=== PATIENT | female | born 1990 | race African-American/Black ===

== ENCOUNTER → 2022-09-27 11:09 | Outpatient (CLI) | payer OTHER, SELFPAY ==
--- NOTE | 2022-09-27 | DI.MRI.S_ITS ---
PROCEDURE: MR KNEE LT WO CON INDICATIONS: LEFT KNEE PAIN TECHNIQUE: Noncontrast sagittal PD fast spin echo and T2 fast spin echo with fat saturation, sagittal 3-D FLASH with fat saturation; coronal T1 spin echo and PD fast spin echo with fat saturation, and axial PD fast spin echo with fat saturation through the knee. COMPARISON: [facility], CR, XR KNEE ARTHRITIC SERIES BI, 08/16/2022, 13:04. FINDINGS: Image quality: Degraded by motion artifact. Menisci: Horizontal tearing versus artifact within the inner, middle, and peripheral thirds of the medial meniscal body and posterior horn. Artifact versus linear oblique high T2 signal intensity within the inner, middle, and peripheral thirds of the anterior horn lateral meniscus, demonstrating inferior articular surface extension. Cruciate ligaments: The anterior and posterior cruciate ligaments appear intact. Medial structures: The medial collateral ligament appears intact. Visualized portions of the pes anserinus tendons appear normal. No abnormal bursal fluid. Lateral structures: The lateral collateral ligament, long and short heads of the biceps femoris tendon appear intact. The popliteus tendon appears normal. Iliotibial band appears normal. Anterior structures: The quadriceps and patellar tendons appear intact. Patellar alignment is normal. No femoral trochlear dysplasia or ventral trochlear prominence. No edema in the infrapatellar fat pad. Bones and cartilage: No bone marrow contusions or fractures. The cartilage of the medial and lateral femorotibial compartments, as well as the patellofemoral compartment, appears normal in thickness. Joint space: There is physiologic knee joint fluid. No Hutson's cyst. Normal appearing synovial plicae are incidentally noted. IMPRESSION: 1. Limited examination secondary to motion artifact. 2. Motion artifact versus tears of the medial and lateral menisci. Repeat examination when patient is able to maintain a stationary position is recommended for confirmation of findings. Dictated by: Blayne Diamond M.D. on 09/27/2022 at 13:53 Transcribed by: [email or web address] on 09/27/2022 at 13:55 Approved by: Blayne Diamond M.D. on 09/27/2022 at 16:38
== END ==
PROVIDERS: PCP Family Medicine; Referring Provider Student in an Organized Health Care Education/Training Program; Visit Provider Student in an Organized Health Care Education/Training Program
DX: M25.562 Pain in left knee (principal)
CPT/HCPCS: 73721